=== PATIENT | male | born 1950 | race Caucasian/White ===

== ENCOUNTER 2022-08-23 09:23 | Outpatient (CLI) | payer OTHER | END 2022-08-23 20:39 | disposition home or self-care (01) | LOC: SCA 09:23 | DX: I07.1 Rheumatic tricuspid insufficiency (principal); C34.90 Malignant neoplasm of unspecified part of unspecified bronchus or lung; I27.20 Pulmonary hypertension, unspecified; K22.710 Barrett's esophagus with low grade dysplasia; M89.352 Hypertrophy of bone, left femur | CPT/HCPCS: 93306 ==